=== PATIENT | female | born 1945 | race Caucasian/White ===

== ENCOUNTER 2025-01-27 11:48 | Emergency (ER) | payer OTHER ==
[~2025-01-27] VITALS: Ht 157.5 cm; Wt 64.0 kg
[2025-01-27 11:50] VITALS: BP 166/66
[2025-01-27 12:28] LABS: PLATELET COUNT (AUTO) 207 K/uL (179-408); RED BLOOD CELL COUNT(AUTO) 3.19 MIL/uL (3.63-4.92); RED CELL DISTRIBUTION WIDTH 15.2 % (12.3-17.7); WHITE BLOOD COUNT (AUTO) 6.8 K/uL (3.8-11.8)
[2025-01-27 12:36] LABS: CREATININE 1.0 mg/dL (0.6-1.3); SODIUM SERUM 142 mmol/L (136-145); UREA NITROGEN, BLOOD 13 mg/dL (7-18)
[2025-01-27] MEDS ORDERED: OXYCODONE/APAP 5-325 MG TABLET ONE (12:40)
[2025-01-27] MEDS: OXYCODONE/APAP 5-325 MG TABLET PO ONE (12:46)
[2025-01-27] MEDS ORDERED: OXYC-128 PO (15:14)
[2025-01-27 15:31] VITALS: BP 141/51; O2SAT 99
== END 2025-01-27 15:33 | disposition home or self-care (01) ==
LOC: ER 11:48
DX: D64.9 Anemia, unspecified (principal); R51.9 Headache, unspecified; E11.9 Type 2 diabetes mellitus without complications; E78.5 Hyperlipidemia, unspecified; I51.9 Heart disease, unspecified; Z79.899 Other long term (current) drug therapy; Z86.2 Personal history of diseases of the blood and blood-forming organs and certain disorders involving the immune mechanism
CPT/HCPCS: 36415; 70450; 83605; 85025; 85730; A4606; A4663